=== PATIENT | female | born 1985 ===

== ENCOUNTER 2017-11-26 11:30 | Inpatient (IN) | payer OTHER ==
[~2017-11-26] VITALS: Ht 172.7 cm; Wt 63.5 kg
[2017-11-26] MEDS ORDERED: PROVERA2.5 MG PO (16:13)
[2017-12-05] MEDS ORDERED: KETO10TA2 PO (11:06)
[2017-12-05] MEDS ORDERED: PEPCID40 MG PO (11:06)
== END 2017-12-05 12:13 | disposition home or self-care (01) | DRG 743 ==
LOC: OB/GYN 12-03 06:05 → O/R 12-03 06:05 → OB/GYN 12-03 11:09 → O/R 12-03 11:30 → OB/GYN 12-03 12:16
PROVIDERS: Obstetrics & Gynecology Gynecologic Oncology
PROC: 0UB90ZZ Excision of Uterus, Open Approach (ICD-10-PCS; principal; 2017-12-03 07:00)
DX: D25.1 Intramural leiomyoma of uterus (principal); N92.0 Excessive and frequent menstruation with regular cycle